=== PATIENT | male | born 1980 | race Caucasian/White ===

== ENCOUNTER 2016-09-20 09:10 | Emergency (ER) | payer OTHER ==
[2016-09-20 09:26] VITALS: TEMP 97.9
--- NOTE | 2016-09-20 10:29 | EDPHY ---
H & P Time Seen by Provider: 09/20/16 09:53 HPI/ROS: CHIEF COMPLAINT: Scalp laceration HISTORY OF PRESENT ILLNESS: 36-year-old male presents to the emergency department by private vehicle with large scalp laceration. Patient states that at 5 o'clock this morning fell in the bathroom. His heard his fall and the patient initially went to urgent care for evaluation and then was sent to the emergency department. The patient states that he does not remember why he fell. He does not remember feeling lightheaded or dizzy. He denies chest pain or difficulty breathing. He thinks that he was getting up to go to the bathroom however he does not know. He also was wondering if he was "sleepwalking." He has never done this in the past however. Denies a headache. Denies neck or back pain. Denies chest pain or difficulty breathing. He has never had this happen in the past. He does admit to drinking 5 beers yesterday however he does not remember going to bed feeling intoxicated. No history of seizures. Denies tongue laceration or urinary incontinence. REVIEW OF SYSTEMS: Constitutional: No fever, no chills. Eyes: No double or blurry vision. ENT: No sore throat. Respiratory: No cough, no shortness of breath. Cardiac: No chest pain. Gastrointestinal: No abdominal pain, vomiting or diarrhea. Genitourinary: No dysuria. Musculoskeletal: No neck or back pain. Skin: Scalp laceration as above. No rashes. Neurological: No headache. Past Medical/Surgical History: Negative Social History: Smoking Status: Never smoked Physical Exam: General Appearance: Alert, no distress. Mentating normally and answering questions appropriately. Vital signs are stable. Eyes: Pupils equal and round. Extraocular motions are all intact. ENT: Mouth: Mucous membranes moist. Respiratory: No wheezing, rhonchi, or rales, lungs are clear to auscultation. Cardiovascular: Regular rate and rhythm. Gastrointestinal: Abdomen is soft and nontender, no masses, no rebound or guarding, bowel sounds normal. Neurological: Alert and oriented x 3, cranial nerves II through XII grossly intact Skin: Large 5 cm laceration to the top of the head. No active bleeding noted. No evidence of depressed skull fracture. Warm and dry, no rashes. Musculoskeletal: Nontender to palpate along the cervical, thoracic or lumbar spine. Neck is supple. Extremities: Full range of motion and no peripheral edema. Psychiatric: Patient is oriented X 3, there is no agitation. Constitutional: Initial Vital Signs Temperature (C) 36.6 C 09/20/16 09:24 Heart Rate 70 09/20/16 09:24 Respiratory Rate 18 09/20/16 09:24 Blood Pressure 104/69 09/20/16 09:24 O2 Sat (%) 97 09/20/16 09:24 O2 Delivery Mode Room Air Allergies/Adverse Reactions: amoxicillin Allergy (Verified 09/20/16 09:23) Home Medications: Medication Instructions Recorded NK [No Known Home Meds] 09/20/16 Medical Decision Making - Diagnostics Imaging Results: Imaging Impressions Head CT 09/20/16 10:26 Impression: Negative for intracranial hemorrhage. Results called and discussed with ALFREDO KHAN on 09/20/2016 at 11:17 Imaging: Discussed imaging studies w/ scallop cutter Radiologist Procedures: Laceration repair. Verbal consent was obtained from the patient. The 5 cm laceration on the scalp was anesthetized using 1% lidocaine with epinephrine. The wound was irrigated with saline, draped and explored to its base with a gloved finger. There were no deep structures involved. The wound was repaired with 12 sang. The wound repair was simple. The procedure was performed by myself. ED Course/Re-evaluation: 36-year-old male presents to the emergency department with scalp laceration. The patient has no recollection of why or how he fell. Patient declined an EKG. He declined any laboratory studies. I feel the patient has a capacity to make this decision. He did agree to CT imaging of his head to evaluate for intracranial bleeding or skull fracture. His wound was repaired, see procedure note. Patient has no history of previous syncopal episodes. The patient currently feels fine now. Differential Diagnosis: Head injury including but not limited to concussion, skull fracture, intraparenchymal contusion, subarachnoid, subdural and epidural hematoma. Syncope including but not limited to vasovagal syncope, arrhythmia, dehydration , and blood loss. Departure - Departure Disposition: Home, Routine, Self-Care Clinical Impression: Scalp laceration Qualifiers: Encounter type: initial encounter Qualified Code(s): S01.01XA - Laceration without foreign body of scalp, initial encounter Condition: Good Instructions: Care For Your Stitches (ED), Laceration (ED), Syncope (ED), Head Injury (ED), Acute Wounds (ED) Additional Instructions: Wound Care Follow-Up: Removal of sutures in 7 days. Suture removal is complimentary in uncomplicated cases. Infection or abnormal findings would require reevaluation by the MD. In that case, you may be billed. Return to the emergency department if you develop worsening headache, vomiting, altered mental status, or if you feel worse in any way. Avoid any activity that might put you at risk for another head injury for at least 1 week. Referrals: Norman Pelayo MD [Medical Doctor] - 2-3 days, call for appt. (Primary care provider network liaison)
[2016-09-20 12:42] VITALS: BP 111/80; PULSE 87; RESP 16; O2SAT 96
== END 2016-09-20 12:41 | disposition home or self-care (01) ==
PROC: 0HQ0XZZ Repair Scalp Skin, External Approach (ICD-10-PCS; principal; 2016-09-20)
DX: S01.01XA Laceration without foreign body of scalp, initial encounter (principal); W18.39XA Other fall on same level, initial encounter; Y92.002 Bathroom of unspecified non-institutional (private) residence as the place of occurrence of the external cause